=== PATIENT | male | born 1995 | race Caucasian/White ===

== ENCOUNTER 2018-09-07 10:28 | Emergency (ER) | payer OTHER ==
[~2018-09-07] VITALS: Ht 172.7 cm; Wt 69.1 kg
[2018-09-07] MEDS ORDERED: CARBAMIDE PEROXIDE 6.5% 15 ML OTIC SOLUTION AS ONE (12:45)
[2018-09-07 13:30] VITALS: BP 112/73
== END 2018-09-07 13:31 | disposition home or self-care (01) ==
LOC: EMS 10:30
DX: H61.22 Impacted cerumen, left ear (principal)
CPT/HCPCS: 69209